=== PATIENT | female | born 1990 | race Caucasian/White ===

== ENCOUNTER 2017-07-01 07:34 | Inpatient (IN) ==
[~2017-07-01 07:34] MED LIST: *HR* Nalbuphine 20 MG/ML AMPUL IVP PRN; Famotidine 20 MG/2 ML VIAL IVP PRN; Metoclopramide 10 MG/2 ML VIAL IVP PRN; Naloxone 0.4 MG/ML INJ IVP PRN; Ondansetron 4 MG/2 ML VIAL IVP PRN; Ringers Solution, Lactated 1,000 ML ONE
[2017-07-01] MEDS ORDERED: *HR* Nalbuphine 20 MG/ML AMPUL ONE (07:37)
[2017-07-01] MEDS ORDERED: Ringers Solution, Lactated 1,000 ML IVC SCH (07:45)
[2017-07-01 07:47] LABS: Basophils % 0.1 %; Eosinophils % 0.4 %; Hemoglobin 11.4 g/dL (11.5-15.4); Immature Granulocytes % 0.7 % (0-4); Lymphocytes # 1.7 K/mcL (0.6-4.6); Lymphocytes % 16.4 %; Mean Corpuscular HGB Conc 32.6 g/dL (31.6-35.5); Mean Corpuscular Hemoglobin 27.7 pg (28.0-33.3); Mean Corpuscular Volume 85.2 fL (83.0-100.0); Mean Platelet Volume 9.9 fL (9.4-12.4); Monocytes # 0.8 K/mcL (0.0-1.3); Monocytes % 8.1 %; Neutrophils # 7.7 K/mcL (1.6-8.9); Platelet Count 268 K/mcL (140-400); Red Blood Count 4.11 M/mcL (3.82-4.97); Red Cell Distribution Width 14.1 % (11.5-14.5); Segmented Neutrophils % 74.3 %
--- NOTE | 2017-07-01 07:57 | Anesthesia Evaluation PreOp ---
Date of Encounter: 07/01/17 Time of Encounter: 07:50 - Past History Planned Operation: BETTYE Cardiac History: Denies any Significant Hx Pulmonary History: Denies Any Significant HX MD PEDIATRIC ALLERGIST History: Denies Any Significant HX Other Medical History: GERD Anesthesia History: No Prior Anesthetic Complications, Past Anesthesia (T&A, cholecystectomy) : Yes Alcohol Use: none Drug use: none Medications and Allergies Vit Calc,Iron,Folic [ Vitamins] 1 each PO 07/01/17 [History] 3 Allergy/AdvReac Type Severity Reaction Status Date / Time No Known Allergies Allergy Verified 07/01/17 07:32 - Meds/Allergy Pre-op Review Medications Reviewed: Yes Allergies Reviewed: Yes Beta Blockers on Current Med List: No Anesthesia Results - Labs 07/01/17 07:30 Anesthesia Exam BP 133/86 P93 T98.4 R 18 Height: 5'3" Weight: 87.3kg NPO (# of Hours): 8 Pain Scale: 8 Pain Scale Used: Numeric (1 - 10) - HEENT Pupil (Motor): Pupils equal Mallampati: II Teeth: Normal Oral Opening: Greater than 3 - MD PEDIATRIC ALLERGIST LOC: Oriented MD PEDIATRIC ALLERGIST Motor: Normal RUE, Normal LUE, Normal RLE, Normal LLE, Normal Face MD PEDIATRIC ALLERGIST Sensory: Normal: RUE, LUE, RLE, LLE, Face - Cardiac Rhythm: Regular Murmur: None JVD: No Carotid Bruit: No - Pulmonary Breath Sounds: bilateral Clear Respiratory Effort: Symmetrical Anesthesia Assess/Plan ASA Score: 2 Modified [place] Scale for Level of Consciousness: Cooperative, oriented, and tranquil Anesthetic Plan: Regional Autologous Blood: No Monitoring Plan: Standard Monitors Recovery Plan: Other
[2017-07-01] MEDS ORDERED: Bupivacaine-MPF 0.25% 10 ML VIAL EP ONE (08:01)
[2017-07-01] MEDS ORDERED: EPHEDrine 50 MG/ML VIAL IVP PRN (08:01)
[2017-07-01] MEDS ORDERED: Ondansetron 4 MG/2 ML VIAL IVP PRN (08:01)
[2017-07-01] MEDS ORDERED: *HR* FentaNYL (PF) 100 MCG/2 ML VIAL EP ONE (08:01)
[2017-07-01] MEDS ORDERED: Naloxone 0.4 MG/ML INJ IVP PRN (08:01)
[2017-07-01] MEDS ORDERED: Bupivacaine-MPF 0.25% 10 ML VIAL ONE (08:03)
[2017-07-01 08:04] LABS: Amphetamine Screen,Urine Negative ng/mL (Cutoff=1000); Barbiturate Screen,Urine Negative ng/mL (Cutoff=200); Benzodiazepines Screen,Urine Negative ng/mL (Cutoff=200); Cannabinoid Screen,Urine Negative ng/mL (Cutoff = 50); Cocaine Screen,Urine Negative ng/mL (Cutoff= 300); Opiate Screen,Urine Negative ng/mL (Cutoff=300); Phencyclidine Screen,Urine Negative ng/mL (Cutoff=25)
[2017-07-01] MEDS ORDERED: Epidural Premix (fent/bupiv) 110 ML EP ONE ×3 (08:05→19:17)
[2017-07-01] MEDS ORDERED: Epidural Premix (fent/bupiv) 110 ML EP SCH (08:15)
--- NOTE | 2017-07-01 08:44 | Anesthesia Procedures ---
Date of Encounter: 07/01/17 Time of Encounter: 08:10 Procedures: Anesthesia - Epidural/Spinal Patient ID/Chart reviewed: Yes Patient examined: Yes OB Eval: Gestational age: 40.1 OB Eval: : 2 OB Eval: Hx Para: 1 OB Eval: Dilated at (cm): 6 OB Eval: Contractions: Non-stressed pattern Consent Obtained: Yes Supplemental Oxygen: None/Room Air Site Prep: Aseptic Technique, Sterile prep and drape, Povidone-Iodine 1% Patient position: upright Local Anesthetic: Lidocaine 1% Amount of Local Anesthetic used: 3 Touhy Needle Gauge: 18 Touhy Needle Depth (cm): 6 Catheter Depth at Skin (cm): 15 Test Dose (1.5% Lido + Epi): Volume given (mls): 3 Test Dose Result: Negative Loading Dose: 0.25% Marcaine (mls): 10 Loading Dose: Fentanyl (mcg): 100 Loading Dose Administered: Thru Catheter Infusion Med: 0.125% Bupivacaine w/ 2 mcg/ml Fentanyl Infusion Rate (mls/hr): [address]: Tegaderm, Tape Interspace Used: L4-L5 Loss of Resistance (SHAISTA): Yes Blood: No CSF: No Paresthesia: No Procedure: BETTYE placed 1st pass in upright position without any immediate noted complications. VSS throughout. FHT 130s Vitals + FHT's: 0810 BP 139/81 P 98 R 18 0835 BP 113/68 P 96 R 16 FHT 130s
--- NOTE | 2017-07-01 09:26 | OB/GYN History & Physical ---
Date of Encounter: 07/01/17 Time of Encounter: 09:23 Assessment and Plan (1) Active labor at term Current visit: Yes Status: Acute Patient currently comfortable in bed. Anesthesia RAD has evaluated the patient and placed epidural. Patient in mild pain at this time. No other complaints at this time. (2) 40 weeks gestation of Current visit: Yes Status: Acute Patient 40 weeks and 1 day gestation. (3) macrosomia Current visit: Yes Status: Acute Last ultrasound showed weight of 4055 g. Qualifiers: Fetus number: single or unspecified fetus Trimester: third trimester Qualified Code(s): O36.63X0 - Maternal care for excessive growth, third trimester, not applicable or unspecified History of Present Illness Chief complaint: labor HPI: Ms. Nieto is a 26 year old female gestational age 40 weeks 1 day presenting to the labor and delivery chief complaint of contractions. Patient states has had no complications except chronic yeast infection which he is currently taking probiotics for her. Patient also has been taking Pepcid and Rolaids as needed for heartburn. Patient taking vitamins throughout . Denies any other medications at this time. Patient states she does have a history of anxiety. She is not currently taking any medications for this at this time but she was taking Ativan 1 mg prior to . First without complications. Patient denies any urinary symptoms. Denies chest pain, shortness of breath or dizziness. Patient denies any new vaginal discharge or vaginal pain. Patient does states she had one episode of dried blood at this morning but she believes it is due to having her cervix checked yesterday in the office. Patient states around 5 AM she woke up this morning and was having contractions approximately 10 minutes apart. By time she arrived at labor and delivery approximately 5 minutes apart. Her membranes have not ruptured yet. She denies any fever or recent illnesses. Blood type is A+. Rubella immune. Hepatitis B, HIV, treponema negative. One hour glucose test results: 74. Group B strep negative. Past Med Surg Social Fam HX - Past Medical History Medical history: no medical history Psychiatric history: no psych history - Past Surgical History Surgical History: cholecystectomy - Social History Smoking Status: Never smoker Smokeless Tobacco Status: No Alcohol use: none Drug use: none - Family History Mother Hx Family Medical Disorders: Yes (Sjrogen's Disease) Obstetrical History - Pregnancies : 2 Para: 1 Term: 1 : 0 Ab's: 0 Livin Medications and Allergies Vit Calc,Iron,Folic [ Vitamins] 1 each PO 07/01/17 [History] 3 Allergy/AdvReac Type Severity Reaction Status Date / Time No Known Allergies Allergy Verified 07/01/17 07:32 Review of System OB All systems PM: reviewed and no additional remarkable complaints except as stated Exam - Constitutional Constitutional: well developed, well nourished, no acute distress, average body habitus - HEENT HEENT: Normocephaly, Mucus Membranes Moist - Lungs Respiratory exam: CTAB - Cardiovascular Cardiovascular exam: RRR - Abdomen Abdomen: Present: bowel sounds normal, gravid, non tender - Extremities Extremities exam: normal inspection - Cervix Dilation: 6 (per RN) Effacement: 90 Station: 0 - Uterus Uterus exam: Present: normal size (estimated weight by jefferson approximately 9 lbs or greater), normal contour - Anus/Rectum Anus/Rectum: Present: normal perianal skin Results Result Diagrams: 07/01/17 07:30 Abnormal lab results Hgb 11.4 g/dL (11.5-15.4) L 07/01/17 07:30 Hct 35.0 % (35.3-44.9) L 07/01/17 07:30 MCH 27.7 pg (28.0-33.3) L 07/01/17 07:30 All other labs normal. - VTE Reasons for not Prescribing Prophylaxis: Treatment not Indicated - Low risk for VTE
--- NOTE | 2017-07-01 10:03 | OB Labor Progress Note ---
Date of Encounter: 07/01/17 Time of Encounter: 10:01 Labor Progress Note - Subjective Subjective: Pt comfortable with epidural. - Cervix Cervix: 7/90/0 - Heart Tones Heart Tones: Category I - [place] Che[place]: 2-4 minutes - Interventions Interventions: AROM for moderate amount clear fluid - Plan Plan: Continue to monitor and reposition frequently. Anticipate .
--- NOTE | 2017-07-01 13:13 | OB Labor Progress Note ---
Date of Encounter: 07/01/17 Time of Encounter: 13:12 Labor Progress Note - Subjective Subjective: Pt reports some mild discomfort with contractions - Cervix Cervix: 7/90/-1 - Heart Tones Heart Tones: Category I - [place]: Q 2 minutes - Interventions Interventions: repositioned to left lateral on peanut ball - Plan Plan: Continue to monitor. Anticipate .
[2017-07-01] MEDS ORDERED: ROPIVACAINE HCL/PF 0.5% 30 ML VIAL ONE (14:27)
--- NOTE | 2017-07-01 14:40 | Anesthesia Progress Note ---
Date of Encounter: 07/01/17 Time of Encounter: 14:38 Anesthesia Note - Note Note: 07/01/17 14:38 Patient stating there was an increase in labor pains over the last hour that spans the entire abdomen. Bolus Ropivicaine 0.5% 7ml administered, pt to neutral position. VSS. BP 109/65 P 85 Will follow up.
[2017-07-01] MEDS ORDERED: Oxytocin 20 units/ LR 1000 mL 20 UNIT/1,000 ML BAG IVC ONE ×2 (17:38→22:51)
--- NOTE | 2017-07-01 20:25 | OB Labor Progress Note ---
Date of Encounter: 07/01/17 Time of Encounter: 20:22 Labor Progress Note - Subjective Subjective: Pt is comfortable with epidural at this time - Cervix Cervix: 10/100/0 - Heart Tones Heart Tones: Category II moderate variability, +accels, occassional variable decelerations - [place]: 1-3 minutes - Interventions Interventions: Pt repositioned on peanut ball to facilitate passive decent. - Plan Plan: Will begin pushing within the next 30 minutes. Anticipate .
--- NOTE | 2017-07-01 21:42 | OB/GYN Procedure Note ---
Delivery - Delivery Date: 07/01/17 Provider: Usha Green Intrapartum events: none Delivery induction: none Delivery augmentation: rupture of membranes Delivery monitor: external FHT, external uterine Anesthesia: epidural Estimated Blood Loss: 400 - (s) Infant A Delivery Date: 07/01/17 Infant Delivery Time: 21:07 Presentation: vertex Position: KENY Route of delivery: Gender: Male Viability: Viable Pounds: 8 Ounces: 13 Weight Gram: 4 kg at 1 minute: 8 at 5 mins: 9 Shoulder Dystocia: not encountered Specimens collected: cord blood Placenta: spontaneous Cord: 3 umbilical vessels - Repair Episiotomy: none Laceration Description: Perineal - 1st Degree - Complications Delivery complications: none Delivery comments: of vigorous viable male infant in the KENY position. No nuchal. Shoulders delivered easily. No shoulder dystosia. Termal meconium noted. Infant placed on mom's belly. Apgars 8/9 at 1 and 5 minutes. Cord double clamped and cut after pulsations ceased. Placenta delivered spontaneously appears grossly intact. 3 vessel cord present. Upon peritoneal inspection, 1st degree perineal laceration closed with chromic gut 2.0. Hemostatis achieved s/p closure. Fundus firm and at u/2. EBL 400ml. delivery attended by Dr. Malinda Fam. Dennis Green present in room for delivery. Dr. Soliman notified. and mother stable in recovery. Pericare instructions given to patient. - Disposition Mom disposition: stable in LDR disposition: stable in LDR
[2017-07-01] MEDS ORDERED: Lanolin 28 GM TUBE TP PRN (23:05)
[2017-07-01] MEDS ORDERED: Oxytocin 20 units/ LR 1000 mL 20 UNIT/1,000 ML BAG IVC SCH (23:05)
[2017-07-01] MEDS ORDERED: Measles/Mumps/Rubella Vacc 0.5 ML VIAL SQ PRN (23:05)
[2017-07-01] MEDS ORDERED: Benzocaine/Menthol 56 GM AEROSOL SPRAY TP PRN (23:05)
[2017-07-02] MEDS: Ibuprofen 600 MG TABLET PO PRN ×4 (01:20→21:49)
[2017-07-02] MEDS: Prenatal Vit/FA 1 EACH TABLET PO SCH (08:09)
--- NOTE | 2017-07-02 10:06 | OB/GYN Progress Note ---
Date of Encounter: 07/02/17 Time of Encounter: 10:04 - Assessment and Plan (1) Vaginal delivery Current Visit: Yes Status: Acute Meeting milestones Anticipate discharge home tomorrow (2) Poor latch on, Current Visit: Yes Status: Acute Difficulty with latch; patient elects to pump and bottle feed pumped milk. Subjective - Subjective Principal diagnosis: S/P Vaginal delivery Interval history: S/P vaginal delivery day 1 Pain is well controlled; normal cramping with pumping Lochia is moderate without clots Voiding without difficulty Mood is ok Tolerating regular diet VSS Patient has decided to pump and feed with bottle; requesting pump Rx today Discharge home tomorrow with infant. Patient reports: appetite normal, voiding normally, pain well controlled, ambulating normally [place]: doing well, other (Difficulty with latch; pumping) Objective - Latest Vital Signs Latest vital signs: Vital Signs Temp Pulse Resp BP Pulse Ox 07/02/17 08:00 98.1 F 90 16 106/70 97 07/02/17 03:57 14 07/02/17 01:50 98.6 F 89 14 120/74 97 07/02/17 01:00 98.1 F 94 14 123/67 96 07/02/17 00:08 14 07/01/17 23:50 98.3 F 86 14 115/77 96 Intake and Output 07/01/17 07/02/17 07/02/17 23:59 07:59 15:59 Intake Total 360 / 360 Output Total 800 / 800 500 / 500 Balance -800 / -800 -140 / -140 Intake: Oral 360 / 360 Output: Urine 800 / 800 500 / 500 Other: Meal Breakfast Percent of Meal Consumed 100% - Exam Lungs: bilateral: normal Chest: Normal S1, Normal S2 Extremities: Present: normal Abdomen: Present: normal appearance, soft. Absent: gravid, tenderness Uterus: Present: normal, firm. Absent: bogginess, tenderness Uterus Position: At Umbilicus, Midline
[2017-07-02] MEDS: Acetaminophen 325 MG TABLET PO PRN ×2 (11:31→19:56)
[2017-07-03] MEDS: Ibuprofen 600 MG TABLET PO PRN ×2 (03:20→08:54)
[2017-07-03] MEDS: Prenatal Vit/FA 1 EACH TABLET PO SCH (08:54)
--- NOTE | 2017-07-03 09:49 | Discharge Summary ---
Date of Encounter: 07/03/17 Time of Encounter: 09:46 - Discharge Diagnosis (1) Active labor at term Priority: Primary Status: Acute (2) Vaginal delivery Priority: Primary Status: Acute - Discharge Medications Prescriptions: Ibuprofen [Motrin] 600 mg PO Q6HR PRN #60 tablet PRN Reason: Cramping Breast Pump [BREAST PUMP] 1 each .ROUTE AD 99 Days #1 each Docusate [Colace] 100 mg PO BID #60 capsule Home Medications: Vit Calc,Iron,Folic [ Vitamins] 1 each PO 07/01/17 [History] Breast Pump [BREAST PUMP] 1 each .ROUTE AD 99 Days #1 each 07/02/17 [Rx] Acetaminophen [Tylenol] 650 mg PO Q6HR PRN tablet 07/03/17 [Rx] Benzocaine/Menthol [place] [Dermoplast [place]] 1 appl TP QID PRN aerosol 07/03/17 [Rx] Docusate [Colace] 100 mg PO BID #60 capsule 07/03/17 [Rx] Ibuprofen [Motrin] 600 mg PO Q6HR PRN #60 tablet 07/03/17 [Rx] Vit/FA 1 each PO DAILY tablet 07/03/17 [Rx] Allergies/Adverse Reactions: 3 Allergy/AdvReac Type Severity Reaction Status Date / Time No Known Allergies Allergy Verified 07/01/17 07:32 Data Procedures and tests throughout hospitalization: Laboratory Tests 07/01/17 07/01/17 07:30 07:49 WBC 10.3 RBC 4.11 Hgb 11.4 L Hct 35.0 L MCV 85.2 MCH 27.7 L MCHC 32.6 RDW 14.1 Plt Count 268 MPV 9.9 Immature Gran % 0.7 Seg Neutrophils % 74.3 Lymphocytes % 16.4 Monocytes % 8.1 Eosinophils % 0.4 Basophils % 0.1 Neutrophils # 7.7 Lymphocytes # 1.7 Monocytes # 0.8 Eosinophils # 0.0 Basophils # 0.0 Urine Opiates Screen Negative Ur Barbiturates Screen Negative Ur Phencyclidine Scrn Negative Ur Amphetamines Screen Negative U Benzodiazepines Scrn Negative Urine Cocaine Screen Negative U Marijuana (THC) Screen Negative Date of admission: 07/01/17 07:34 Primary care physician: PCP NONE Consults: 07/01/17 23:05 Consult to Looper Fixer [CONS] Routine Comment: Vaginal delivery, consult needed Discharging clinician: Capri Li Anticipated date of discharge: 07/03/17 - Patient Status Disposition: Home, Self-Care Condition: Good Functional capacity at discharge: independent ambulation Overall status at discharge: patient is back to baseline - Discharge Instructions Follow Up With: NONE,PCP [Primary Care Provider] - - Diet and Activity Activity: ambulate only with your walker Diet: regular diet Hospital Course Reason for admission: active labor Delivery: Episiotomy: none Laceration: 1st degree Other procedures: none complications: none Discharge diagnosis: IUP at term delivered [place] baby: male Hospital course: Delivery - Delivery Date: 07/01/17 Provider: Usha Green Intrapartum events: none Delivery induction: none Delivery augmentation: rupture of membranes Delivery monitor: external FHT, external uterine Anesthesia: epidural Estimated Blood Loss: 400 - Infant (s) Infant A Delivery Date: 07/01/17 Delivery Time: 21:07 Presentation: vertex Position: KENY Route of delivery: Gender: Male Viability: Viable Pounds: 8 Ounces: 13 Weight Gram: 4 kg at 1 minute: 8 at 5 mins: 9 Shoulder Dystocia: not encountered Specimens collected: cord blood Placenta: spontaneous Cord: 3 umbilical vessels - Repair Episiotomy: none Laceration Description: Perineal - 1st Degree - Complications Delivery complications: none Delivery comments: of vigorous viable male in the KENY position. No nuchal. Shoulders delivered easily. No shoulder dystosia. Termal meconium noted. Infant placed on mom's belly. Apgars 8/9 at 1 and 5 minutes. Cord double clamped and cut after pulsations ceased. Placenta delivered spontaneously appears grossly intact. 3 vessel cord present. Upon peritoneal inspection, 1st degree perineal laceration closed with chromic gut 2.0. Hemostatis achieved s/p closure. Fundus firm and at u/2. EBL 400ml. Infant delivery attended by Dr. Malinda Fam. Dennis Green present in room for delivery. Dr. Soliman notified. Infant and mother stable in recovery. Pericare instructions given to patient. - Disposition Mom disposition: stable in PP and appropriate for discharge. Time Attestation: Total time spent providing and/or coordinating discharge services: Time Spent: Less than 30 minutes Exam - Constitutional Vitals: Temp Pulse Resp BP Pulse Ox 98.2 F 87 16 118/73 99 07/02/17 20:00 07/02/17 20:00 07/03/17 08:21 07/02/17 20:00 07/02/17 20:00 General appearance IM: A&O X 3 - Respiratory Respiratory exam: Present: CTAB - Cardiovascular Cardiovascular exam IM: Present: RRR - GI/Abdominal GI/Abdominal exam IM: normal bowel sounds, soft - Uterine Tone: Firm Uterus Position: At Umbilicus - Extremities Exam Extremities exam IM: Present: normal capillary refill, normal inspection - Neurological Exam Neurological exam: normal gait, oriented X3 - Psychiatric Additional comments: Reports good mood. Concerned about PP anxiety, reassurance given
[2017-07-03 10:17] VITALS: BP 108/74
[2017-07-03] MEDS: Acetaminophen 325 MG TABLET PO PRN (11:47)
== END 2017-07-03 13:00 | disposition home or self-care (01) | DRG 775 ==
LOC: 1NENULAB → 1NENUOBS 23:30
PROVIDERS: ADMIT Registered Nurse; ATTEND Registered Nurse